=== PATIENT | female | born 1995 | race Caucasian/White ===

== ENCOUNTER 2017-05-17 21:32 | Inpatient (IN) | payer OTHER ==
[~2017-05-17] VITALS: Ht 149.9 cm; Wt 68.0 kg
[~2017-05-17 21:32] MED LIST: NOHOMEMEDS
[2017-05-17 21:53] VITALS: BP 117/67
[2017-05-17 23:00] VITALS: BP 110/68
[2017-05-17 23:00] LABS: EOSINOPHIL (%) 0.7 % (0-5); EOSINOPHIL COUNT 0.1 K/uL (0-0.3); HEMATOCRIT 33.8 % (36.0-46.0); IMMATURE GRANULOCYTE COUNT 0.1 K/uL; LYMPHOCYTE COUNT 1.7 K/uL (1.0-2.8); MCH 27.4 PG (29.0-34.0); MCHC 32.8 G/DL (30.0-36.0); MCV 83.5 FL (83-99); MEAN PLAT.VOLUME 12.2 uM^3 (9.5-12.4); MONOCYTE (%) 6.5 % (3-12); MONOCYTE COUNT 0.8 K/uL (0-0.8); NEUTROPHIL (%) 77.4 % (45-76); PLATELET COUNT 184 K/uL (156-360); RBC DIS.WIDTH-SD 39.3 % (39-53); RED BLOOD COUNT 4.05 M/uL (3.80-5.20); WHITE BLOOD COUNT 11.6 K/uL (4.1-10.2)
[2017-05-18] VITALS (35 sets, daily range): BP systolic 100–126; BP diastolic 55–73
[2017-05-19 08:21] VITALS: BP 118/70
[2017-05-19 15:41] VITALS: BP 128/59
[2017-05-19 23:23] VITALS: BP 126/67
[2017-05-20] MEDS ORDERED: IBUPROFEN800 MG PO (07:56)
== END 2017-05-20 17:53 | disposition home or self-care (01) | DRG 775 ==
LOC: LDRP-OP 21:32 → 2WEST 21:35 → LDRP-OP 06-25 11:27
PROVIDERS: Nurse Practitioner
PROC: 00HU33Z Insertion of Infusion Device into Spinal Canal, Percutaneous Approach (ICD-10-PCS; principal; 2017-05-18)
PROC: 10E0XZZ Delivery of Products of Conception, External Approach (ICD-10-PCS; principal; 2017-05-18)
PROC: 3E0S3CZ (ICD-10-PCS; principal; 2017-05-18)
PROC: 0HQ9XZZ Repair Perineum Skin, External Approach (ICD-10-PCS; principal; 2017-05-18)
DX: O70.0 First degree perineal laceration during delivery (principal); O99.89 Other specified diseases and conditions complicating pregnancy, childbirth and the puerperium; M41.9 Scoliosis, unspecified; O99.324 Drug use complicating childbirth; F11.20 Opioid dependence, uncomplicated; Z3A.38 38 weeks gestation of pregnancy; Z37.0 Single live birth; Z98.1 Arthrodesis status
CPT/HCPCS: 85025; C1755; G0378; J0595; J3010; J7120; Q0169